=== PATIENT | male | born 1970 | race Caucasian/White ===

== ENCOUNTER 2020-11-25 08:20 | Outpatient (CLI) | payer BC | END 2020-11-25 08:30 | disposition home or self-care (01) | LOC: NUCLEAR 08:20 | DX: I87.2 Venous insufficiency (chronic) (peripheral) (principal); R03.0 Elevated blood-pressure reading, without diagnosis of hypertension ==

== ENCOUNTER 2023-10-23 14:49 | Outpatient (CLI) | payer BC ==
[2023-10-23 15:42] LABS: CREATININE SERUM 1.09 mg/dL (0.70-1.30)
== END 2023-10-23 15:32 | disposition home or self-care (01) ==
LOC: LAB 14:49
PROVIDERS: ATTEND Radiology Diagnostic Radiology
DX: C19 Malignant neoplasm of rectosigmoid junction (principal)

== ENCOUNTER 2023-10-24 08:14 | Outpatient (CLI) | payer BC | END 2023-10-24 08:25 | disposition home or self-care (01) | LOC: TOM 08:14 | DX: C19 Malignant neoplasm of rectosigmoid junction (principal) ==

== ENCOUNTER 2023-10-31 13:13 | Outpatient (CLI) | payer BC ==
[2023-10-31 14:07] LABS: HEMATOCRIT 40.7 % (39.0-48.0); HEMOGLOBIN 14.2 g/dL (13-16.00); MEAN CELL VOLUME 91.1 fL (80.0-100.00); MEAN CORPUSCULAR HEMOGLOBIN 31.8 pg (27.00-32.0); MEAN CORPUSCULAR HGB CONC 34.9 g/dl (32.0-36.0); PLATELET COUNT 360 K/uL (150-450); RED BLOOD COUNT 4.47 M/uL (4.00-6.00); RED CELL DISTRIBUTION WIDTH 12.8 % (11.5-14.5)
[2023-10-31 14:41] LABS: ALBUMIN 3.9 gm/dL (3.4-5.0); BILIRUBIN TOTAL 0.51 mg/dL (0.3-1.2); CALCIUM 9.5 mg/dL (8.5-10.1); CREATININE SERUM 0.98 mg/dL (0.70-1.30); GFR 79.41; GLOBULINA 3.6 G/DL (2.4-3.5); POTASSIUM 4.35 mEq/L (3.5-5.1); TOTAL PROTEIN 7.5 gm/dL (6.4-8.2)
== END 2023-10-31 14:45 | disposition home or self-care (01) ==
LOC: LAB 13:13
DX: C20 Malignant neoplasm of rectum (principal)

== ENCOUNTER 2024-01-25 09:22 | Outpatient (CLI) | payer BC ==
[2024-01-25 10:25] LABS: HEMATOCRIT 38.3 % (39.0-48.0); HEMOGLOBIN 13.5 g/dL (13-16.00); MEAN CELL VOLUME 88.6 fL (80.0-100.00); MEAN CORPUSCULAR HEMOGLOBIN 31.2 pg (27.00-32.0); MEAN CORPUSCULAR HGB CONC 35.2 g/dl (32.0-36.0); PLATELET COUNT 276 K/uL (150-450); RED BLOOD COUNT 4.32 M/uL (4.00-6.00); RED CELL DISTRIBUTION WIDTH 13.2 % (11.5-14.5)
[2024-01-25 10:28] LABS: URINE APPEARANCE Clear; URINE BILIRRUBIN Negative (NEGATIVE); URINE BLOOD Negative; URINE COLOR Yellow; URINE GLUCOSE Negative (NEGATIVE); URINE LEUKOCYTE Negative; URINE NITRATE Negative; URINE PROTEIN Negative (NEGATIVE); URINE UROBILINOGEN 0.2 E.U./dl
[2024-01-25 10:29] LABS: URINE RBC 2.8 uL (0.0-20.8); URINE WBC 13.2 uL (0.0-23.2)
[2024-01-25 10:40] LABS: URINE BACTERIA 2.5 uL (0.0-1933); URINE EPITHELIAL CELLS 0.4 uL (0.0-38.8)
[2024-01-25 10:46] LABS: INR 1.07; PARTIAL THROMBOPLASTIN TIME 25.1 SECONDS (22.0-34.0); PROTHROMBIN TIME 11.2 SECONDS (9.0-11.5)
[2024-01-25 10:52] LABS: ALBUMIN 4.2 gm/dL (3.4-5.0); BILIRUBIN TOTAL 0.99 mg/dL (0.3-1.2); CREATININE SERUM 0.96 mg/dL (0.70-1.30); GFR 81.32; GLOBULINA 3.6 G/DL (2.4-3.5); POTASSIUM 4.59 mEq/L (3.5-5.1); TOTAL PROTEIN 7.8 gm/dL (6.4-8.2)
== END 2024-01-25 09:23 | disposition home or self-care (01) ==
LOC: LAB 09:22
PROVIDERS: ATTEND Surgery
DX: C20 Malignant neoplasm of rectum (principal); R59.0 Localized enlarged lymph nodes

== ENCOUNTER → 2024-08-26 09:25 | Outpatient (CLI) | payer BC ==
[~2024-08-26 09:25] MED LIST: CAPECITABINE500 MG PO; HYDRODIURIL12.5 MG PO; LIPITOR40 MG PO; LOSARTAN POTASS50 MG PO; TRAM1TAB98 PO
[2024-08-26 10:13] LABS: PH,URINE 6.5 (5.0-8.0); URINE APPEARANCE Clear; URINE BILIRRUBIN Negative (NEGATIVE); URINE BLOOD Negative; URINE COLOR Yellow; URINE GLUCOSE Negative (NEGATIVE); URINE KETONE Negative (NEGATIVE); URINE LEUKOCYTE Negative; URINE NITRATE Negative; URINE PROTEIN Negative (NEGATIVE); URINE UROBILINOGEN 0.2 E.U./dl
[2024-08-26 10:16] LABS: URINE CAST 0.15 uL (0.0-1.40); URINE EPITHELIAL CELLS 0.4 uL (0.0-38.8); URINE RBC 0.3 uL (0.0-20.8)
[2024-08-26 10:23] LABS: HEMATOCRIT 37.8 % (39.0-48.0); HEMOGLOBIN 13.4 g/dL (13-16.00); MEAN CORPUSCULAR HEMOGLOBIN 31.9 pg (27.00-32.0); MEAN CORPUSCULAR HGB CONC 35.5 g/dl (32.0-36.0); PLATELET COUNT 295 K/uL (150-450); RED BLOOD COUNT 4.21 M/uL (4.00-6.00)
[2024-08-26 10:44] LABS: INR 1.02; PARTIAL THROMBOPLASTIN TIME 24.5 SECONDS (22.0-34.0); PROTHROMBIN TIME 11.1 SECONDS (9.0-11.5)
[2024-08-26 11:31] LABS: ALBUMIN 4.1 gm/dL (3.4-5.0); BILIRUBIN TOTAL 0.68 mg/dL (0.3-1.2); CALCIUM 9.3 mg/dL (8.5-10.1); CREATININE SERUM 1.03 mg/dL (0.70-1.30); GFR 74.7; GLOBULINA 3.5 G/DL (2.4-3.5); POTASSIUM 4.15 mEq/L (3.5-5.1); TOTAL PROTEIN 7.6 gm/dL (6.4-8.2)
== END | disposition home or self-care (01) ==
LOC: RAD 09:25
PROVIDERS: ATTEND Surgery
DX: C20 Malignant neoplasm of rectum (principal); R59.0 Localized enlarged lymph nodes

== ENCOUNTER 2024-08-28 12:15 | Inpatient (IN) | payer BC ==
[~2024-08-28] VITALS: Ht 162.6 cm; Wt 103.0 kg
[2024-09-02] MEDS ORDERED: CEFTRIAXONE SODIUM 2,000 MG VIAL IV SCH (12:00)
[2024-09-02] MEDS ORDERED: LIDOCAINE HCL 1%/EPINEPHRINE 20ML VIAL IJ ONE (12:00)
[2024-09-02] MEDS ORDERED: METRONIDAZOLE/SODIUM CHLORIDE 500 MG/100 ML PIGGYBACK IV SCH ×2 (12:00→17:00)
[2024-09-02] MEDS ORDERED: BUPIVACAINE HCL/PF 0.25% 30ML VIAL InF ONE (12:00)
[2024-09-02] MEDS ORDERED: OxyCODONE HCL 5 MG TABLET (ROXICODONE) PO PRN (14:15)
[2024-09-02] MEDS ORDERED: ONDANSETRON HCL 2 MG/ML VIAL IV PRN (14:15)
[2024-09-02] MEDS ORDERED: MORPHINE SULFATE 4 MG/ML CARTRIDGE IV PRN (14:15)
[2024-09-02] MEDS ORDERED: DEXTROSE 50 % IN WATER 0.5 G/ML DISP.SYRIN IV PRN (14:15)
[2024-09-02] MEDS ORDERED: 0.9 % SODIUM CHLORIDE 1,000 ML IV SCH (14:15)
[2024-09-02] MEDS ORDERED: MORPHINE SULFATE 4 MG/ML VIAL IV ONE ×2 (15:20→15:50)
[2024-09-02] MEDS ORDERED: ENALAPRILAT DIHYDRATE 1.25 MG/ML VIAL IV PRN (15:30)
[2024-09-02] MEDS ORDERED: SUGAMMADEX SODIUM 200 MG/2 ML VIAL IV ONE (16:00)
[2024-09-02 16:48] LABS: HEMATOCRIT 38.4 % (39.0-48.0); HEMOGLOBIN 12.8 g/dL (13-16.00); MEAN CELL VOLUME 93.4 fL (80.0-100.00); MEAN CORPUSCULAR HEMOGLOBIN 31.2 pg (27.00-32.0); MEAN CORPUSCULAR HGB CONC 33.4 g/dl (32.0-36.0); PLATELET COUNT 308 K/uL (150-450); RED BLOOD COUNT 4.11 M/uL (4.00-6.00); RED CELL DISTRIBUTION WIDTH 12.8 % (11.5-14.5)
[2024-09-02 16:50] VITALS: BP 130/66; O2SAT 95
[2024-09-02 17:00] LABS: ALBUMIN 3.7 gm/dL (3.4-5.0); CREATININE SERUM 1.14 mg/dL (0.70-1.30); GFR 66.45; MAGNESIUM 1.7 mg/dL (1.8-2.4); PHOSPHOROUS 4.6 mg/dL (2.5-4.9); POTASSIUM 4.75 mEq/L (3.5-5.1)
[2024-09-02] MEDS ORDERED: GABAPENTIN 300 MG CAPSULE PO SCH (17:00)
[2024-09-02] MEDS ORDERED: HYOSCYAMINE SULFATE 0.125 MG TAB.SUBL SL SCH (17:00)
[2024-09-02 18:30] VITALS: BP 124/83; O2SAT 95
[2024-09-02] MEDS ORDERED: ACETAMINOPHEN 500 MG GEL..CAP PO SCH (20:00)
[2024-09-02] MEDS ORDERED: FAMOTIDINE/PF 20 MG/2 ML VIAL IV PUSH SCH (21:00)
[2024-09-02] MEDS ORDERED: CELECOXIB 200 MG CAPSULE PO SCH (21:00)
[2024-09-03] VITALS: BP 146/88; O2SAT 94
[2024-09-03 08:13] LABS: HEMOGLOBIN 13.5 g/dL (13-16.00); MEAN CELL VOLUME 91.5 fL (80.0-100.00); MEAN CORPUSCULAR HEMOGLOBIN 32.4 pg (27.00-32.0); MEAN CORPUSCULAR HGB CONC 35.4 g/dl (32.0-36.0); PLATELET COUNT 284 K/uL (150-450); RED BLOOD COUNT 4.15 M/uL (4.00-6.00); RED CELL DISTRIBUTION WIDTH 12.9 % (11.5-14.5)
[2024-09-03 08:32] LABS: ALBUMIN 3.6 gm/dL (3.4-5.0); CALCIUM 9.1 mg/dL (8.5-10.1); GFR 77.3; MAGNESIUM 2.2 mg/dL (1.8-2.4); PHOSPHOROUS 3.9 mg/dL (2.5-4.9); POTASSIUM 4.32 mEq/L (3.5-5.1)
[2024-09-03] MEDS ORDERED: HYDROCHLOROTHIAZIDE 12.5 MG CAPSULE PO SCH (09:00)
[2024-09-03] MEDS ORDERED: LOSARTAN POTASSIUM 50 MG TABLET PO SCH (09:00)
[2024-09-03 09:26] VITALS: BP 173/93; O2SAT 97
[2024-09-03 16:44] VITALS: BP 159/86; O2SAT 99
[2024-09-03] MEDS ORDERED: ENOXAPARIN SODIUM 40 MG/0.4 ML SYRINGE SUBCUTANEO SCH (17:00)
[2024-09-04] VITALS: BP 144/84; O2SAT 99
[2024-09-04 06:32] LABS: HEMATOCRIT 36.6 % (39.0-48.0); HEMOGLOBIN 12.5 g/dL (13-16.00); MEAN CELL VOLUME 92.6 fL (80.0-100.00); MEAN CORPUSCULAR HEMOGLOBIN 31.5 pg (27.00-32.0); PLATELET COUNT 272 K/uL (150-450); RED BLOOD COUNT 3.96 M/uL (4.00-6.00); RED CELL DISTRIBUTION WIDTH 12.7 % (11.5-14.5)
[2024-09-04 07:04] LABS: CALCIUM 8.5 mg/dL (8.5-10.1); CREATININE SERUM 0.92 mg/dL (0.70-1.30); GFR 85.1; PHOSPHOROUS 3.2 mg/dL (2.5-4.9); POTASSIUM 4.25 mEq/L (3.5-5.1)
[2024-09-04 08:00] VITALS: BP 129/73; O2SAT 97
[2024-09-04] MEDS ORDERED: ENOXAPARIN SODIUM 40 MG/0.4 ML SYRINGE SUBCUTANEO SCH (09:00)
[2024-09-04 16:00] VITALS: BP 113/78; O2SAT 95
[2024-09-05] VITALS: BP 131/82; O2SAT 96
[2024-09-05] MEDS ORDERED: PANTOPRAZOLE SODIUM 40 MG/VIAL VIAL IV SCH (01:30)
[2024-09-05] MEDS ORDERED: PANTOPRAZOLE SODIUM 80 MG in 0.9 % SODIUM CHLORIDE 100 ML IV SCH (09:30)
[2024-09-05 09:56] VITALS: BP 117/65; O2SAT 99
[2024-09-05 16:16] VITALS: BP 128/72; O2SAT 95
[2024-09-06 00:38] VITALS: BP 138/81; O2SAT 99
[2024-09-06 07:06] LABS: HEMOGLOBIN 12.1 g/dL (13-16.00); MEAN CELL VOLUME 91.1 fL (80.0-100.00); MEAN CORPUSCULAR HEMOGLOBIN 32.3 pg (27.00-32.0); MEAN CORPUSCULAR HGB CONC 35.5 g/dl (32.0-36.0); PLATELET COUNT 300 K/uL (150-450); RED BLOOD COUNT 3.73 M/uL (4.00-6.00); RED CELL DISTRIBUTION WIDTH 12.9 % (11.5-14.5)
[2024-09-06 07:58] LABS: CALCIUM 8.6 mg/dL (8.5-10.1); CREATININE SERUM 0.96 mg/dL (0.70-1.30); GFR 81.02; MAGNESIUM 2.2 mg/dL (1.8-2.4); PHOSPHOROUS 3.5 mg/dL (2.5-4.9); POTASSIUM 3.7 mEq/L (3.5-5.1)
[2024-09-06] MEDS ORDERED: PANTOPRAZOLE SODIUM 40 MG/VIAL VIAL IV SCH (09:00)
[2024-09-06 16:59] VITALS: BP 143/83; O2SAT 95
[2024-09-06] MEDS ORDERED: AMINO ACIDS 4.25 %/DEXTROSE 5% 1,000 ML PERIFERAL SCH (17:00)
[2024-09-07 01:26] VITALS: BP 129/84; O2SAT 94
[2024-09-07 06:52] LABS: HEMATOCRIT 33.3 % (39.0-48.0); HEMOGLOBIN 11.6 g/dL (13-16.00); MEAN CELL VOLUME 91.6 fL (80.0-100.00); MEAN CORPUSCULAR HEMOGLOBIN 31.9 pg (27.00-32.0); MEAN CORPUSCULAR HGB CONC 34.9 g/dl (32.0-36.0); PLATELET COUNT 310 K/uL (150-450); RED BLOOD COUNT 3.63 M/uL (4.00-6.00); RED CELL DISTRIBUTION WIDTH 12.7 % (11.5-14.5)
[2024-09-07 08:00] VITALS: BP 131/61; O2SAT 99
[2024-09-07 08:18] LABS: CALCIUM 8.5 mg/dL (8.5-10.1); CREATININE SERUM 0.87 mg/dL (0.70-1.30); GFR 90.77; MAGNESIUM 2.2 mg/dL (1.8-2.4); PHOSPHOROUS 3.6 mg/dL (2.5-4.9); POTASSIUM 3.59 mEq/L (3.5-5.1)
[2024-09-07 16:58] VITALS: BP 133/87; O2SAT 95
[2024-09-08 01:10] VITALS: BP 143/88; O2SAT 98
[2024-09-08 08:00] VITALS: BP 119/69; O2SAT 100
[2024-09-08 16:00] VITALS: BP 128/61; O2SAT 95
[2024-09-09 00:08] VITALS: BP 141/79; O2SAT 96
[2024-09-09 07:42] LABS: HEMATOCRIT 32.4 % (39.0-48.0); HEMOGLOBIN 11.3 g/dL (13-16.00); MEAN CELL VOLUME 90.9 fL (80.0-100.00); MEAN CORPUSCULAR HEMOGLOBIN 31.6 pg (27.00-32.0); MEAN CORPUSCULAR HGB CONC 34.7 g/dl (32.0-36.0); PLATELET COUNT 324 K/uL (150-450); RED BLOOD COUNT 3.57 M/uL (4.00-6.00); RED CELL DISTRIBUTION WIDTH 12.3 % (11.5-14.5)
[2024-09-09 08:14] LABS: INR 1.08; PARTIAL THROMBOPLASTIN TIME 25.2 SECONDS (22.0-34.0); PROTHROMBIN TIME 11.7 SECONDS (9.0-11.5)
[2024-09-09 08:29] LABS: ALBUMIN 2.9 gm/dL (3.4-5.0); BILIRUBIN TOTAL 0.76 mg/dL (0.3-1.2); BILIRUBIN,CONJUGATED 0.36 mg/dL (0.0-0.2); BILIRUBIN,UNCONJUGATED 0.4 mg/dL (0.0-0.6); CALCIUM 8.3 mg/dL (8.5-10.1); CHOL HDL RATIO 6.7 (0-5.0); CREATININE SERUM 0.78 mg/dL (0.70-1.30); GFR 102.96; MAGNESIUM 2.3 mg/dL (1.8-2.4); PHOSPHOROUS 3.5 mg/dL (2.5-4.9); POTASSIUM 3.58 mEq/L (3.5-5.1); TOTAL PROTEIN 6.1 gm/dL (6.4-8.2)
[2024-09-09] MEDS ORDERED: DIATRIZOATE MEGLUMINE, SODIUM 30 ML BOTTLE PO NR (09:28)
[2024-09-09 16:00] VITALS: BP 137/75; O2SAT 98
[2024-09-10] VITALS: BP 137/83; O2SAT 99
[2024-09-10] MEDS ORDERED: VANCOMYCIN HCL 1,000 MG VIAL IV SCH (05:45)
[2024-09-10] MEDS ORDERED: PIPERACILLIN/TAZOBACTAM SODIUM 3.375 GM in 0.9 % SODIUM CHLORIDE 100 ML IV SCH (06:00)
[2024-09-10 08:11] VITALS: BP 119/74; O2SAT 97
[2024-09-10 09:00] LABS: UREA CLEARANCE 47.5 ML/MIN
[2024-09-10 12:00] VITALS: BP 133/74; O2SAT 99
[2024-09-10 15:50] VITALS: BP 114/65; O2SAT 98
[2024-09-10] MEDS ORDERED: MIDAZOLAM HCL 2 MG/2 ML VIAL IV PUSH ONE (17:15)
[2024-09-10] MEDS ORDERED: fentaNYL CITRATE 50 MCG/ML AMPUL IV PUSH ONE (17:15)
[2024-09-11 00:30] VITALS: BP 125/62; O2SAT 98
[2024-09-11 08:12] VITALS: BP 126/78; O2SAT 96
[2024-09-11] MEDS ORDERED: THIAMINE HCL 100 MG/ML 2 ML VIAL IV SCH (09:00)
[2024-09-11] MEDS ORDERED: MULTIVIT INFUSN,ADULT 4,VIT K 10 ML VIAL IV SCH (09:00)
[2024-09-11 12:12] VITALS: BP 114/77; O2SAT 95
[2024-09-11 15:37] LABS: HEMATOCRIT 33.7 % (39.0-48.0); HEMOGLOBIN 11.6 g/dL (13-16.00); MEAN CELL VOLUME 90.7 fL (80.0-100.00); MEAN CORPUSCULAR HEMOGLOBIN 31.1 pg (27.00-32.0); MEAN CORPUSCULAR HGB CONC 34.3 g/dl (32.0-36.0); PLATELET COUNT 419 K/uL (150-450); RED BLOOD COUNT 3.72 M/uL (4.00-6.00); RED CELL DISTRIBUTION WIDTH 12.7 % (11.5-14.5)
[2024-09-11 15:48] LABS: CALCIUM 8.8 mg/dL (8.5-10.1); CREATININE SERUM 0.9 mg/dL (0.70-1.30); GFR 87.29; MAGNESIUM 2.1 mg/dL (1.8-2.4); PHOSPHOROUS 3.7 mg/dL (2.5-4.9); POTASSIUM 3.44 mEq/L (3.5-5.1)
[2024-09-11 17:00] VITALS: BP 122/66; O2SAT 98
[2024-09-12] VITALS: BP 140/70; O2SAT 100
[2024-09-12 07:30] LABS: HEMATOCRIT 31.9 % (39.0-48.0); HEMOGLOBIN 10.9 g/dL (13-16.00); MEAN CORPUSCULAR HEMOGLOBIN 31.2 pg (27.00-32.0); MEAN CORPUSCULAR HGB CONC 34.3 g/dl (32.0-36.0); PLATELET COUNT 402 K/uL (150-450); RED CELL DISTRIBUTION WIDTH 12.3 % (11.5-14.5)
[2024-09-12 08:00] VITALS: BP 122/76; O2SAT 96
[2024-09-12 08:11] LABS: ALBUMIN 2.9 gm/dL (3.4-5.0); BILIRUBIN TOTAL 0.7 mg/dL (0.3-1.2); CALCIUM 8.2 mg/dL (8.5-10.1); CREATININE SERUM 1.06 mg/dL (0.70-1.30); GFR 72.27; GLOBULINA 3.1 G/DL (2.4-3.5); MAGNESIUM 2.1 mg/dL (1.8-2.4); PHOSPHOROUS 3.5 mg/dL (2.5-4.9); POTASSIUM 3.88 mEq/L (3.5-5.1)
[2024-09-12 16:05] VITALS: BP 130/78; O2SAT 98
[2024-09-13 00:26] VITALS: BP 106/65; O2SAT 99
[2024-09-13 08:00] VITALS: BP 106/60; O2SAT 99
[2024-09-13] MEDS ORDERED: RINGERS SOLUTION,LACTATED 1,000 ML IV SCH (08:45)
[2024-09-13 17:00] VITALS: BP 110/56; O2SAT 100
[2024-09-14 00:39] VITALS: BP 101/65; O2SAT 99
[2024-09-14 07:18] LABS: HEMATOCRIT 31.2 % (39.0-48.0); HEMOGLOBIN 11.1 g/dL (13-16.00); MEAN CELL VOLUME 89.6 fL (80.0-100.00); MEAN CORPUSCULAR HEMOGLOBIN 31.8 pg (27.00-32.0); MEAN CORPUSCULAR HGB CONC 35.5 g/dl (32.0-36.0); PLATELET COUNT 432 K/uL (150-450); RED BLOOD COUNT 3.48 M/uL (4.00-6.00); RED CELL DISTRIBUTION WIDTH 12.9 % (11.5-14.5)
[2024-09-14 07:49] LABS: BILIRUBIN TOTAL 0.48 mg/dL (0.3-1.2); CALCIUM 8.8 mg/dL (8.5-10.1); CREATININE SERUM 1.03 mg/dL (0.70-1.30); GFR 74.7; GLOBULINA 3.2 G/DL (2.4-3.5); POTASSIUM 3.54 mEq/L (3.5-5.1); TOTAL PROTEIN 6.2 gm/dL (6.4-8.2)
[2024-09-14 08:30] VITALS: BP 125/65; O2SAT 100
[2024-09-14 16:00] VITALS: BP 125/85; O2SAT 97
[2024-09-14] MEDS ORDERED: VANCOMYCIN HCL 5 MG/ML REDILUIDO IV SCH (21:00)
[2024-09-15 01:07] VITALS: BP 132/55; O2SAT 98
[2024-09-15 08:00] VITALS: BP 145/85; O2SAT 100
[2024-09-15 16:35] VITALS: BP 123/71; O2SAT 98
[2024-09-16 00:55] VITALS: BP 107/71; O2SAT 93
[2024-09-16] MEDS ORDERED: ONDANSETRON HCL 2 MG/ML VIAL IV PRN (07:45)
[2024-09-16] MEDS ORDERED: METOCLOPRAMIDE HCL 5 MG/ML VIAL IV NR (08:00)
[2024-09-16 08:14] VITALS: BP 125/83; O2SAT 97
[2024-09-16 16:48] VITALS: BP 142/80; O2SAT 96
[2024-09-17 00:57] VITALS: BP 144/85; O2SAT 99
[2024-09-17 08:00] VITALS: BP 130/79; O2SAT 96
[2024-09-17 08:01] LABS: HEMOGLOBIN 11.3 g/dL (13-16.00); MEAN CELL VOLUME 91.6 fL (80.0-100.00); MEAN CORPUSCULAR HEMOGLOBIN 31.4 pg (27.00-32.0); MEAN CORPUSCULAR HGB CONC 34.3 g/dl (32.0-36.0); PLATELET COUNT 560 K/uL (150-450)
[2024-09-17 09:00] LABS: CALCIUM 9.5 mg/dL (8.5-10.1); CREATININE SERUM 1.33 mg/dL (0.70-1.30); GFR 55.62; MAGNESIUM 2.3 mg/dL (1.8-2.4); PHOSPHOROUS 4.3 mg/dL (2.5-4.9); POTASSIUM 4.33 mEq/L (3.5-5.1)
[2024-09-17 09:04] LABS: C-REACTIVE PROTEIN 5.75 MG/DL (0.00-0.29)
[2024-09-17 16:00] VITALS: BP 123/74; O2SAT 97
[2024-09-18 01:59] VITALS: BP 101/54; O2SAT 96
[2024-09-18 08:00] VITALS: BP 108/75; O2SAT 96
[2024-09-18 08:54] LABS: HEMATOCRIT 30.9 % (39.0-48.0); HEMOGLOBIN 10.8 g/dL (13-16.00); MEAN CELL VOLUME 89.8 fL (80.0-100.00); MEAN CORPUSCULAR HEMOGLOBIN 31.4 pg (27.00-32.0); PLATELET COUNT 480 K/uL (150-450); RED BLOOD COUNT 3.44 M/uL (4.00-6.00); RED CELL DISTRIBUTION WIDTH 13.1 % (11.5-14.5)
[2024-09-18 09:52] LABS: BILIRUBIN TOTAL 0.52 mg/dL (0.3-1.2); CALCIUM 9.1 mg/dL (8.5-10.1); CREATININE SERUM 1.68 mg/dL (0.70-1.30); GFR 42.48; GLOBULINA 3.4 G/DL (2.4-3.5); MAGNESIUM 2.1 mg/dL (1.8-2.4); PHOSPHOROUS 3.4 mg/dL (2.5-4.9); POTASSIUM 4.21 mEq/L (3.5-5.1); TOTAL PROTEIN 6.4 gm/dL (6.4-8.2)
[2024-09-18] MEDS ORDERED: PANTOPRAZOLE SODIUM 40 MG TABLET.DR PO SCH (11:28)
[2024-09-18] MEDS ORDERED: 0.9 % SODIUM CHLORIDE 1,000 ML IV SCH (11:30)
[2024-09-18] MEDS ORDERED: hydrALAZINE HCL 20 MG VIAL IV PRN (11:30)
[2024-09-18] MEDS ORDERED: LOPERAMIDE HCL 2 MG CAPSULE PO NR (11:45)
[2024-09-18 16:00] VITALS: BP 109/61; O2SAT 97
[2024-09-19 00:51] VITALS: BP 117/66; O2SAT 99
[2024-09-19 07:24] LABS: HEMATOCRIT 29.9 % (39.0-48.0); HEMOGLOBIN 10.3 g/dL (13-16.00); MEAN CELL VOLUME 91.6 fL (80.0-100.00); MEAN CORPUSCULAR HEMOGLOBIN 31.7 pg (27.00-32.0); MEAN CORPUSCULAR HGB CONC 34.6 g/dl (32.0-36.0); PLATELET COUNT 443 K/uL (150-450); RED BLOOD COUNT 3.26 M/uL (4.00-6.00); RED CELL DISTRIBUTION WIDTH 12.9 % (11.5-14.5)
[2024-09-19 08:03] VITALS: BP 126/82; O2SAT 96
[2024-09-19 09:02] LABS: CALCIUM 8.3 mg/dL (8.5-10.1); CREATININE SERUM 1.55 mg/dL (0.70-1.30); GFR 46.61; MAGNESIUM 2.1 mg/dL (1.8-2.4); POTASSIUM 3.91 mEq/L (3.5-5.1)
[2024-09-19 17:04] VITALS: BP 135/74; O2SAT 96
[2024-09-20] VITALS: BP 100/65; O2SAT 95
[2024-09-20 08:00] VITALS: BP 144/87; O2SAT 99
[2024-09-20 13:49] LABS: CALCIUM 8.9 mg/dL (8.5-10.1); CREATININE SERUM 1.44 mg/dL (0.70-1.30); GFR 50.75; MAGNESIUM 2.2 mg/dL (1.8-2.4); PHOSPHOROUS 2.4 mg/dL (2.5-4.9); POTASSIUM 4.28 mEq/L (3.5-5.1)
[2024-09-20] MEDS ORDERED: POTASSIUM PHOS,M-BASIC-D-BASIC 3 MM/ML VIAL IV NR (16:27)
[2024-09-20 16:56] VITALS: BP 132/75; O2SAT 97
[2024-09-21 00:53] VITALS: BP 137/71; O2SAT 97
[2024-09-21 08:00] VITALS: BP 138/97; O2SAT 96
[2024-09-21 09:01] LABS: CALCIUM 8.5 mg/dL (8.5-10.1); CREATININE SERUM 1.47 mg/dL (0.70-1.30); GFR 49.55; PHOSPHOROUS 2.8 mg/dL (2.5-4.9); POTASSIUM 4.67 mEq/L (3.5-5.1)
[2024-09-21] MEDS ORDERED: 0.9 % SODIUM CHLORIDE 1,000 ML IV SCH (09:30)
[2024-09-21 10:24] LABS: HEMATOCRIT 26.7 % (39.0-48.0); HEMOGLOBIN 9.3 g/dL (13-16.00); MEAN CORPUSCULAR HEMOGLOBIN 31.6 pg (27.00-32.0); MEAN CORPUSCULAR HGB CONC 34.8 g/dl (32.0-36.0); RED BLOOD COUNT 2.94 M/uL (4.00-6.00); RED CELL DISTRIBUTION WIDTH 12.7 % (11.5-14.5)
[2024-09-21 11:16] LABS: PLATELET COUNT 366 K/uL (150-450)
[2024-09-21] MEDS ORDERED: Cyanocobalamin/Mecobalamin 1 TAB.SL SL SCH (18:39)
[2024-09-21] MEDS ORDERED: SOD FERRIC GLUC COMPLX/SUCROSE 62.5 MG in 0.9 % SODIUM CHLORIDE 50 ML IV SCH (18:39)
[2024-09-21 19:00] VITALS: BP 140/85; O2SAT 95
[2024-09-22 00:35] VITALS: BP 111/71; O2SAT 98
[2024-09-22 08:00] VITALS: BP 119/75; O2SAT 96
[2024-09-22 08:43] LABS: HEMATOCRIT 26.6 % (39.0-48.0); HEMOGLOBIN 9.3 g/dL (13-16.00); MEAN CELL VOLUME 89.7 fL (80.0-100.00); MEAN CORPUSCULAR HEMOGLOBIN 31.5 pg (27.00-32.0); MEAN CORPUSCULAR HGB CONC 35.1 g/dl (32.0-36.0); PLATELET COUNT 341 K/uL (150-450); RED BLOOD COUNT 2.96 M/uL (4.00-6.00); RED CELL DISTRIBUTION WIDTH 12.8 % (11.5-14.5)
[2024-09-22 09:12] LABS: CALCIUM 8.3 mg/dL (8.5-10.1); CREATININE SERUM 1.43 mg/dL (0.70-1.30); GFR 51.16; MAGNESIUM 1.9 mg/dL (1.8-2.4); PHOSPHOROUS 2.8 mg/dL (2.5-4.9); POTASSIUM 4.64 mEq/L (3.5-5.1)
== END 2024-09-22 14:52 | disposition home or self-care (01) | DRG 330 ==
LOC: SURG 12:15 → SURH 09-02 08:01 → O/R 09-02 08:01 → SURH 09-02 15:26
PROVIDERS: Internal Medicine Geriatric Medicine; Specialist; Surgery; ADMIT Surgery; ATTEND Surgery
PROC: 0DBP4ZZ Excision of Rectum, Percutaneous Endoscopic Approach (ICD-10-PCS; 2024-09-02)
PROC: 07BC4ZZ Excision of Pelvis Lymphatic, Percutaneous Endoscopic Approach (ICD-10-PCS; 2024-09-02)
PROC: 0D1B4Z4 Bypass Ileum to Cutaneous, Percutaneous Endoscopic Approach (ICD-10-PCS; 2024-09-02)
PROC: 0DTN4ZZ Resection of Sigmoid Colon, Percutaneous Endoscopic Approach (ICD-10-PCS; principal; 2024-09-02 12:45)
PROC: 0DH673Z Insertion of Infusion Device into Stomach, Via Natural or Artificial Opening (ICD-10-PCS; 2024-09-05)
PROC: 02HV33Z Insertion of Infusion Device into Superior Vena Cava, Percutaneous Approach (ICD-10-PCS; 2024-09-06)
PROC: BW21YZZ Computerized Tomography (CT Scan) of Abdomen and Pelvis using Other Contrast (ICD-10-PCS; 2024-09-09)
PROC: 0W9G3ZZ Drainage of Peritoneal Cavity, Percutaneous Approach (ICD-10-PCS; 2024-09-10)
PROC: BW2GZZZ Computerized Tomography (CT Scan) of Pelvic Region (ICD-10-PCS; 2024-09-14)
DX: C20 Malignant neoplasm of rectum (principal); K56.0 Paralytic ileus; K91.89 Other postprocedural complications and disorders of digestive system; N17.8 Other acute kidney failure; I11.9 Hypertensive heart disease without heart failure; E78.00 Pure hypercholesterolemia, unspecified; D50.0 Iron deficiency anemia secondary to blood loss (chronic)

== ENCOUNTER 2024-09-30 09:01 | Outpatient (CLI) | payer BC | END 2024-09-30 09:04 | disposition home or self-care (01) | LOC: SONOGRAMA 09:01 | PROVIDERS: ATTEND Internal Medicine Geriatric Medicine | DX: R80.9 Proteinuria, unspecified (principal) ==

== ENCOUNTER → 2024-12-09 | Outpatient (CLI) | payer BC ==
[2024-12-09 11:33] LABS: URINE APPEARANCE Clear; URINE BILIRRUBIN Negative (NEGATIVE); URINE BLOOD Negative; URINE COLOR Yellow; URINE GLUCOSE Negative (NEGATIVE); URINE KETONE Negative (NEGATIVE); URINE LEUKOCYTE Negative; URINE NITRATE Negative; URINE PROTEIN Negative (NEGATIVE); URINE UROBILINOGEN 0.2 E.U./dl
[2024-12-09 11:36] LABS: HEMATOCRIT 38.8 % (39.0-48.0); HEMOGLOBIN 13.2 g/dL (13-16.00); MEAN CELL VOLUME 88.2 fL (80.0-100.00); PLATELET COUNT 313 K/uL (150-450)
[2024-12-09 11:38] LABS: URINE BACTERIA 19.5 uL (0.0-1933); URINE EPITHELIAL CELLS 1.7 uL (0.0-38.8); URINE WBC 3.7 uL (0.0-23.2)
[2024-12-09 11:51] LABS: PARTIAL THROMBOPLASTIN TIME 24.7 SECONDS (22.0-34.0); PROTHROMBIN TIME 10.9 SECONDS (9.0-11.5)
[2024-12-09 11:53] LABS: URINE RBC 0.5 uL (0.0-20.8)
[2024-12-09 11:54] LABS: URINE CAST 1.17 uL (0.0-1.40)
[2024-12-09 12:52] LABS: ALBUMIN 4.2 gm/dL (3.4-5.0); BILIRUBIN TOTAL 0.64 mg/dL (0.3-1.2); CALCIUM 9.7 mg/dL (8.5-10.1); CREATININE SERUM 1.29 mg/dL (0.70-1.30); GFR 57.61; GLOBULINA 3.9 G/DL (2.4-3.5); POTASSIUM 4.94 mEq/L (3.5-5.1); TOTAL PROTEIN 8.1 gm/dL (6.4-8.2)
== END | disposition home or self-care (01) ==
LOC: RAD 10:38
PROVIDERS: ATTEND Surgery
DX: C20 Malignant neoplasm of rectum (principal); R59.0 Localized enlarged lymph nodes

== ENCOUNTER 2024-12-10 11:40 | Inpatient (IN) | payer BC ==
[~2024-12-10] VITALS: Ht 121.9 cm; Wt 93.9 kg
[2024-12-23] MEDS ORDERED: METRONIDAZOLE/SODIUM CHLORIDE 500 MG/100 ML PIGGYBACK IV ONE (08:15)
[2024-12-23] MEDS ORDERED: CHLORHEXIDINE GLUCONATE 120 ML BOTTLE TOP ONE (08:15)
[2024-12-23] MEDS ORDERED: CEFTRIAXONE SODIUM 2,000 MG VIAL IV ONE (08:15)
[2024-12-23] MEDS ORDERED: BUPIVACAINE HCL 30 ML VIAL IJ ONE (08:15)
[2024-12-23] MEDS ORDERED: 0.9 % SODIUM CHLORIDE 1,000 ML IV SCH (08:45)
[2024-12-23] MEDS ORDERED: MORPHINE SULFATE 4 MG/ML CARTRIDGE IV PRN (08:45)
[2024-12-23] MEDS ORDERED: ONDANSETRON HCL 2 MG/ML VIAL IV PRN (08:45)
[2024-12-23] MEDS ORDERED: DEXTROSE 50 % IN WATER 0.5 G/ML DISP.SYRIN IV PRN (08:45)
[2024-12-23] MEDS ORDERED: OxyCODONE HCL 5 MG TABLET (ROXICODONE) PO PRN (08:45)
[2024-12-23] MEDS ORDERED: CELECOXIB 200 MG CAPSULE PO SCH (09:00)
[2024-12-23] MEDS ORDERED: HYOSCYAMINE SULFATE 0.125 MG TAB.SUBL SL SCH (09:00)
[2024-12-23] MEDS ORDERED: FAMOTIDINE/PF 20 MG/2 ML VIAL IV PUSH SCH (09:00)
[2024-12-23] MEDS ORDERED: GABAPENTIN 300 MG CAPSULE PO SCH (09:00)
[2024-12-23] MEDS ORDERED: MORPHINE SULFATE 4 MG/ML VIAL IV ONE ×2 (09:10→09:40)
[2024-12-23 10:49] LABS: HEMOGLOBIN 11.9 g/dL (13-16.00); MEAN CELL VOLUME 87.8 fL (80.0-100.00); MEAN CORPUSCULAR HEMOGLOBIN 29.8 pg (27.00-32.0); MEAN CORPUSCULAR HGB CONC 33.9 g/dl (32.0-36.0); PLATELET COUNT 294 K/uL (150-450); RED BLOOD COUNT 3.99 M/uL (4.00-6.00); RED CELL DISTRIBUTION WIDTH 13.9 % (11.5-14.5)
[2024-12-23 11:01] LABS: ALBUMIN 3.7 gm/dL (3.4-5.0); CALCIUM 8.8 mg/dL (8.5-10.1); CREATININE SERUM 1.22 mg/dL (0.70-1.30); GFR 61.45; MAGNESIUM 1.9 mg/dL (1.8-2.4); PHOSPHOROUS 3.7 mg/dL (2.5-4.9); POTASSIUM 4.85 mEq/L (3.5-5.1)
[2024-12-23] MEDS ORDERED: ENALAPRILAT DIHYDRATE 1.25 MG/ML VIAL IV PRN (12:45)
[2024-12-23 13:59] VITALS: BP 134/82; O2SAT 95
[2024-12-23] MEDS ORDERED: ACETAMINOPHEN 500 MG GEL..CAP PO SCH (14:00)
[2024-12-23] MEDS ORDERED: METRONIDAZOLE/SODIUM CHLORIDE 500 MG/100 ML PIGGYBACK IV SCH (17:00)
[2024-12-23 17:04] VITALS: BP 138/90; O2SAT 94
[2024-12-24 00:09] VITALS: BP 120/76; O2SAT 98
[2024-12-24 06:52] LABS: HEMATOCRIT 35.4 % (39.0-48.0); HEMOGLOBIN 12.3 g/dL (13-16.00); MEAN CELL VOLUME 87.4 fL (80.0-100.00); MEAN CORPUSCULAR HEMOGLOBIN 30.4 pg (27.00-32.0); MEAN CORPUSCULAR HGB CONC 34.8 g/dl (32.0-36.0); PLATELET COUNT 283 K/uL (150-450); RED BLOOD COUNT 4.05 M/uL (4.00-6.00); RED CELL DISTRIBUTION WIDTH 13.9 % (11.5-14.5)
[2024-12-24 07:30] LABS: ALBUMIN 3.4 gm/dL (3.4-5.0); CALCIUM 8.6 mg/dL (8.5-10.1); CREATININE SERUM 1.36 mg/dL (0.70-1.30); GFR 54.21; PHOSPHOROUS 4.6 mg/dL (2.5-4.9); POTASSIUM 4.66 mEq/L (3.5-5.1)
[2024-12-24 08:00] VITALS: BP 131/83; O2SAT 97
[2024-12-24] MEDS ORDERED: LOSARTAN/HYDROCHLOROTHIAZIDE 1 UDTAB TABLET PO SCH (09:00)
[2024-12-24 16:57] VITALS: BP 139/72; O2SAT 97
[2024-12-24] MEDS ORDERED: ENOXAPARIN SODIUM 40 MG/0.4 ML SYRINGE SUBCUTANEO SCH (17:00)
[2024-12-24] MEDS ORDERED: ATORVASTATIN CALCIUM 20 MG TABLET PO SCH (17:00)
[2024-12-25 00:08] VITALS: BP 124/79; O2SAT 97
[2024-12-25 08:00] VITALS: BP 125/72; O2SAT 95
[2024-12-25] MEDS ORDERED: CHOLESTYRAMINE/ASPARTAME LIGHT 4 G/PKT PACKET PO SCH (09:00)
[2024-12-25] MEDS ORDERED: ENOXAPARIN SODIUM 40 MG/0.4 ML SYRINGE SUBCUTANEO SCH (09:00)
[2024-12-25] MEDS ORDERED: ZINC OXIDE 30 GM TUBE TOP SCH (09:00)
[2024-12-25 11:04] LABS: HEMATOCRIT 36.3 % (39.0-48.0); HEMOGLOBIN 12.7 g/dL (13-16.00); MEAN CELL VOLUME 86.4 fL (80.0-100.00); MEAN CORPUSCULAR HEMOGLOBIN 30.2 pg (27.00-32.0); PLATELET COUNT 285 K/uL (150-450); RED CELL DISTRIBUTION WIDTH 14.2 % (11.5-14.5)
[2024-12-25 11:27] LABS: CALCIUM 8.8 mg/dL (8.5-10.1); CREATININE SERUM 1.21 mg/dL (0.70-1.30); GFR 62.03; PHOSPHOROUS 2.8 mg/dL (2.5-4.9); POTASSIUM 3.87 mEq/L (3.5-5.1)
[2024-12-25] MEDS ORDERED: FLUTICASONE PROPIONATE 50 MCG SPRAY NASAL SCH (11:41)
[2024-12-25] MEDS ORDERED: LORATADINE 10 MG TABLET PO NR (13:00)
[2024-12-25 16:28] VITALS: BP 135/89; O2SAT 97
[2024-12-26 08:35] VITALS: BP 111/71; O2SAT 95
[2024-12-26] MEDS ORDERED: LORATADINE 10 MG TABLET PO SCH (09:00)
[2024-12-26] MEDS ORDERED: CHOLESTYRAMINE L4 GM PO (11:59)
[2024-12-26] MEDS ORDERED: HYOSCYAMINE0.125 M1 SL (11:59)
[2024-12-26] MEDS ORDERED: TRAM1TAB98 PO (12:00)
== END 2024-12-26 14:26 | disposition home or self-care (01) | DRG 331 ==
LOC: SURH 12-19 07:00 → O/R 12-23 05:10 → SURH 12-23 10:40
PROVIDERS: Internal Medicine Geriatric Medicine; ADMIT Surgery; ATTEND Surgery
PROC: 0DBB4ZZ Excision of Ileum, Percutaneous Endoscopic Approach (ICD-10-PCS; principal; 2024-12-23 17:00)
DX: C20 Malignant neoplasm of rectum (principal); R59.0 Localized enlarged lymph nodes; K66.0 Peritoneal adhesions (postprocedural) (postinfection)